=== PATIENT | female | born 1970 | race Caucasian/White ===

== ENCOUNTER 2017-04-06 12:58 | Emergency (ER) | payer MEDICARE, MEDICAID ==
[~2017-04-06] VITALS: Ht 162.6 cm; Wt 58.7 kg
[~2017-04-06 12:58] MED LIST: ALPRAZOLAM; BUSPIRONE; LEVO50TA8 PO; LIT300C PO; LYR25C PO; PHEN-824 PO; SUBOXEN; TRAZODONE PO; [UNRECOGNIZED DRUG - OTHER]
[2017-04-06 13:05] VITALS: BP 120/73
[2017-04-06] MEDS ORDERED: PHEN-873 PO (13:38)
[2017-04-06] MEDS ORDERED: CEPH500C5 PO (13:38)
[2017-04-06 13:52] LABS: CLARITY,URINE SLIGHTLY CLOUDY (Clear); COLOR,URINE YELLOW (Yellow); GLUCOSE, URINE NEGATIVE (Neg); KETONES,URINE NEGATIVE (Neg); LEUKOCYTE ESTERASE ,URINE NEGATIVE (Neg); NITRITES, URINE NEGATIVE (Neg); OCCULT BLOOD,URINE NEGATIVE (Neg); PH,URINE 6.5 (4.8-8.0); PROTEIN,URINE NEGATIVE (Neg); UROBILINOGEN,URINE 0.2 E.U/dL (0.2-1.0)
[2017-04-06 13:53] LABS: UA COLLECTION TYPE CLN CATCH MIDSTREAM
[2017-04-06 13:58] LABS: BACTERIA,URINE FEW /HPF (Neg); MUCUS STRANDS FEW /LPF (Neg); RBC,URINE NONE SEEN /HPF (0-2); SQUAMOUS EPITHELIAL CELL,UR FEW /LPF (FEW)
== END 2017-04-06 14:12 | disposition home or self-care (01) ==
LOC: ER 12:59
DX: N39.0 Urinary tract infection, site not specified (principal); Z90.710 Acquired absence of both cervix and uterus; Z79.899 Other long term (current) drug therapy; Z88.0 Allergy status to penicillin; Z88.1 Allergy status to other antibiotic agents; Z88.2 Allergy status to sulfonamides
CPT/HCPCS: 81001; 87088; 99284

== ENCOUNTER 2018-10-01 14:17 | Emergency (ER) | payer MEDICARE, MEDICAID ==
[~2018-10-01] VITALS: Ht 162.6 cm; Wt 72.5 kg
[~2018-10-01 14:17] MED LIST changes: +PHEN-786 PO
[2018-10-01 14:22] VITALS: BP 102/52
[2018-10-01 14:55] LABS: URINE HCG NEGATIVE (NEG)
[2018-10-01 14:59] LABS: CLARITY,URINE CLOUDY (Clear); COLOR,URINE YELLOW (Yellow); GLUCOSE, URINE NEGATIVE (Neg); KETONES,URINE NEGATIVE (Neg); LEUKOCYTE ESTERASE ,URINE LARGE (Neg); NITRITES, URINE NEGATIVE (Neg); OCCULT BLOOD,URINE LARGE (Neg); PROTEIN,URINE 30 mg/dl (Neg); UROBILINOGEN,URINE 0.2 E.U/dL (0.2-1.0)
[2018-10-01 15:04] LABS: UA COLLECTION TYPE CLN CATCH MIDSTREAM
[2018-10-01 15:05] LABS: BACTERIA,URINE 1+ /HPF (Neg); MUCUS STRANDS NONE SEEN /LPF (Neg); SQUAMOUS EPITHELIAL CELL,UR FEW /LPF (FEW); WBC,URINE TNTC /HPF (0-4)
[2018-10-01] MEDS ORDERED: PHEN-824 PO (16:11)
[2018-10-01] MEDS ORDERED: CEPH-572 PO (16:11)
== END 2018-10-01 16:21 | disposition home or self-care (01) ==
LOC: ER 14:19
DX: N39.0 Urinary tract infection, site not specified (principal); Z88.2 Allergy status to sulfonamides; Z88.1 Allergy status to other antibiotic agents; Z79.2 Long term (current) use of antibiotics; Z79.899 Other long term (current) drug therapy; Z90.710 Acquired absence of both cervix and uterus
CPT/HCPCS: 81001; 81025; 87088; 99283

== ENCOUNTER 2023-12-29 17:58 | Emergency (ER) | payer BC, MEDICAID ==
[~2023-12-29] VITALS: Ht 165.1 cm; Wt 94.4 kg
[2023-12-29 18:15] VITALS: BP 104/73; PULSE 94; RESP 18; O2SAT 95
[2023-12-29] MEDS ORDERED: ketorolac trometh 15mg/ml vial 15 MG/ML ML IM ONE (19:40)
[2023-12-29] MEDS ORDERED: NAPR-996 PO (19:50)
[2023-12-29] MEDS ORDERED: HYDR-3965 PO (19:50)
[2023-12-29 20:05] VITALS: TEMP 98.1
== END 2023-12-29 20:07 | disposition home or self-care (01) ==
LOC: ER 17:58
DX: M25.571 Pain in right ankle and joints of right foot (principal); Z88.1 Allergy status to other antibiotic agents; Z88.2 Allergy status to sulfonamides; Z88.0 Allergy status to penicillin; Z79.899 Other long term (current) drug therapy; Z90.710 Acquired absence of both cervix and uterus
CPT/HCPCS: 99284

== ENCOUNTER 2024-01-20 17:23 | Emergency (ER) | payer BC, MEDICAID ==
[~2024-01-20] VITALS: Ht 165.1 cm; Wt 91.6 kg
[~2024-01-20 17:23] MED LIST changes: +HYDR-3965 PO; +NAPR-996 PO
[2024-01-20 17:33] VITALS: BP 120/89; PULSE 82; RESP 16; O2SAT 100
[2024-01-20 19:16] LABS: BILIRUBIN,URINE NEGATIVE (Neg); CLARITY,URINE CLOUDY (Clear); COLOR,URINE YELLOW (Yellow); GLUCOSE, URINE NEGATIVE (Neg); KETONES,URINE TRACE mg/dl (Neg); LEUKOCYTE ESTERASE ,URINE MODERATE (Neg); NITRITES, URINE NEGATIVE (Neg); OCCULT BLOOD,URINE TRACE-INTACT (Neg); PROTEIN,URINE TRACE mg/dl (Neg)
[2024-01-20 19:21] LABS: UA COLLECTION TYPE CLN CATCH MIDSTREAM
[2024-01-20 19:22] LABS: BACTERIA,URINE FEW /HPF (Neg); SQUAMOUS EPITHELIAL CELL,UR FEW /LPF (FEW); TRANSITIONAL EPI CELLS,URINE FEW /HPF; WBC,URINE TNTC /HPF (0-4)
[2024-01-20 19:24] LABS: CAL OXALATE CRYSTALS FEW /HPF (NEGATIVE); RBC,URINE 0-2 /HPF (0-2)
[2024-01-20] MEDS ORDERED: CEPH-585 PO (19:43)
[2024-01-20 19:44] VITALS: TEMP 97.1
== END 2024-01-20 19:49 | disposition home or self-care (01) ==
LOC: ER 17:23
DX: N39.0 Urinary tract infection, site not specified (principal); Z88.2 Allergy status to sulfonamides; Z88.1 Allergy status to other antibiotic agents; Z79.1 Long term (current) use of non-steroidal anti-inflammatories (NSAID); Z79.899 Other long term (current) drug therapy; Z90.710 Acquired absence of both cervix and uterus
CPT/HCPCS: 81001; 87077; 87088; 87186; 99283

== ENCOUNTER 2024-02-11 07:08 | Outpatient (CLI) | payer BC, MEDICAID ==
[~2024-02-11 07:08] MED LIST changes: -HYDR-3965 PO
== END 2024-02-11 23:56 | disposition home or self-care (01) ==
LOC: MRI02 07:08
PROVIDERS: ATTEND Podiatrist Foot & Ankle Surgery
DX: S92.054A Nondisplaced other extraarticular fracture of right calcaneus, initial encounter for closed fracture (principal); M25.471 Effusion, right ankle; M77.51 Other enthesopathy of right foot and ankle; X58.XXXA Exposure to other specified factors, initial encounter; Y93.89 Activity, other specified; Y92.89 Other specified places as the place of occurrence of the external cause; Y99.8 Other external cause status; D36.7 Benign neoplasm of other specified sites
CPT/HCPCS: 73721